=== PATIENT | male | born 1965 | race Caucasian/White ===

== ENCOUNTER 2019-06-10 12:41 | Emergency (ER) | payer MEDICAID ==
[~2019-06-10] VITALS: Ht 180.3 cm; Wt 97.5 kg
[2019-06-10 14:26] VITALS: BP 178/112
== END 2019-06-10 14:28 | disposition home or self-care (01) ==
LOC: ED 13:32
DX: I10 Essential (primary) hypertension (principal); Z86.73 Personal history of transient ischemic attack (TIA), and cerebral infarction without residual deficits
CPT/HCPCS: 99283

== ENCOUNTER 2021-04-09 12:00 | Observation (INO) | payer MEDICAID, OTHER ==
[~2021-04-09] VITALS: Ht 180.3 cm; Wt 99.9 kg
[~2021-04-09 12:00] MED LIST: CALC200T24 PO; CHOL400T2 PO; LISI-167 PO; MELO7.5T31 PO; OXYC10TA47 PO; OXYC1TAB18 PO; POLY17PO5 PO; RIVA20TA PO; SIMV20TA19 PO
[2021-04-09] MEDS: SODIUM CHLORIDE 0.9% 1,000 ML IV ONE ×2 (12:30→13:58)
[2021-04-09 13:01] LABS: BASOPHILS % (AUTO) 1 % (0-1); EOSINOPHILS % (AUTO) 0 % (1-7); LYMPHOCYTES % (AUTO) 12 % (22-44); MEAN CORPUSCULAR HEMOGLOBIN 32.6 pg (27.5-34.5); MEAN PLATELET VOLUME 7.6 fL (7.4-10.4); MONOCYTES % (AUTO) 5 % (2-9); NEUTROPHILS % (AUTO) 83 % (42-75); PLATELET COUNT 298 x10^3/uL (130-400); RED BLOOD COUNT 4.99 x10^6/uL (4.38-5.82); RED CELL DISTRIBUTION WIDTH 12.7 % (9.4-14.8)
[2021-04-09 13:13] LABS: ALANINE AMINOTRANSFERASE 23 U/L (12-78); ALBUMIN 4.2 g/dL (3.4-5.0); ANION GAP 4 mmol/L (5-15); CHLORIDE 107 mmol/L (98-107)
[2021-04-09 13:15] LABS: ALKALINE PHOSPHATASE 118 U/L (45-117); BILIRUBIN,TOTAL 0.6 mg/dL (0.2-1.0); TOTAL PROTEIN 7.9 g/dL (6.4-8.2)
[2021-04-09 13:16] LABS: MD NO
--- NOTE | 2021-04-09 14:01 | NUR ---
PT CAME IN [place] AND ABD PAIN THAT STARTED AROUND 0900 THIS MORNING. PT DENIES BLOODY STOOL BUT SAID HIS VOMIT HAD BLOOD IN IT. PT RESTING IN [facility]. UNABLE TO PROVIDE UA AT THIS TIME. IV FLUIDS INFUSING.
[2021-04-09] MEDS ORDERED: ONDANSETRON 2MG/ML, 2ML IVPush ONE (14:30)
[2021-04-09] MEDS ORDERED: HYDROmorphone 1 MG/ML, 1ML INJ ONE (14:37)
[2021-04-09] MEDS ORDERED: ONDANSETRON 2MG/ML, 2ML ONE (14:37)
--- NOTE | 2021-04-09 14:45 | NUR ---
PT MEDICATED PER MAR
--- NOTE | 2021-04-09 15:03 | NUR ---
PT TO CT AT THIS TIME
[2021-04-09] MEDS ORDERED: OMNIPAQUE 350 MG/ML, 100ML BOTTLE ONE (15:18)
[2021-04-09] MEDS ORDERED: SODIUM CHLORIDE FLUSH 10ML SYR IVF ONE ×2 (15:30)
[2021-04-09] MEDS ORDERED: HYDROmorphone 1 MG/ML, 1ML INJ IV ONE (15:30)
[2021-04-09] MEDS ORDERED: SODIUM CHLORIDE 0.9% 1,000ML IVBOLUS ONE (15:30)
[2021-04-09 16:00] LABS: MICROSCOPIC INDICATED
[2021-04-09] MEDS ORDERED: KETAMINE 10 MG/ML, 20ML IV ONE (16:07)
[2021-04-09] MEDS ORDERED: KETAMINE 10 MG/ML, 20ML ONE (16:08)
--- NOTE | 2021-04-09 16:45 | NUR ---
PT RESTING IN [facility]. UP FOR RECHECK
[2021-04-09] MEDS ORDERED: PANTOPRAZOLE 40 MG IV IVPush SCH (19:30)
[2021-04-09] MEDS ORDERED: BISACODYL 10 MG SUPP PR PRN (19:30)
[2021-04-09] MEDS ORDERED: ONDANSETRON ODT 4 MG PO PRN (19:30)
[2021-04-09] MEDS ORDERED: ACETAMINOPHEN 325 MG TABLET PO PRN (19:30)
[2021-04-09] MEDS ORDERED: DOCUSATE 100 MG CAPSULE PO PRN (19:30)
[2021-04-09] MEDS ORDERED: hydrALAzine 20 MG/ML, 1ML IVPush PRN (19:30)
[2021-04-09] MEDS ORDERED: PROMETHAZINE 25 MG/ML, 1ML IM PRN (19:30)
[2021-04-09] MEDS ORDERED: POLYETHYLENE GLYCOL 17 GM PACKET PO PRN (19:30)
[2021-04-09] MEDS ORDERED: ONDANSETRON 2MG/ML, 2ML IVPush PRN (19:30)
[2021-04-09] MEDS ORDERED: CLOP75TA52 PO (19:51)
[2021-04-09] MEDS ORDERED: ATOR-2 PO (19:51)
[2021-04-09] MEDS ORDERED: LISI-167 PO (19:51)
[2021-04-09] MEDS ORDERED: METO25TA35 PO (19:51)
[2021-04-09] MEDS ORDERED: ASPI-963 PO (19:51)
[2021-04-09] MEDS: SODIUM CHLORIDE 0.9% 1,000 ML IV SCH (20:34)
[2021-04-09 20:45] VITALS: BP 159/95
[2021-04-09] MEDS ORDERED: ATORVASTATIN 20 MG TABLET PO SCH (21:00)
[2021-04-09] MEDS: OXYcodone IR 5MG TABLET PO PRN (21:23)
[2021-04-09] MEDS ORDERED: MORPHINE SULFATE 4 MG/ML, 1ML IVPush PRN (23:30)
[2021-04-10 00:55] VITALS: BP 151/86
[2021-04-10] MEDS: OXYcodone IR 5MG TABLET PO PRN (02:11)
[2021-04-10] MEDS: SODIUM CHLORIDE 0.9% 1,000 ML IV SCH (05:05)
[2021-04-10 05:29] LABS: BASOPHILS % (AUTO) 1 % (0-1); EOSINOPHILS % (AUTO) 0 % (1-7); LYMPHOCYTES % (AUTO) 14 % (22-44); MEAN CORPUSCULAR HEMOGLOBIN 32.8 pg (27.5-34.5); MEAN CORPUSCULAR HGB CONC 34.1 g/dL (33.2-36.2); MEAN PLATELET VOLUME 7.8 fL (7.4-10.4); MONOCYTES % (AUTO) 6 % (2-9); NEUTROPHILS % (AUTO) 80 % (42-75); PLATELET COUNT 260 x10^3/uL (130-400); RED BLOOD COUNT 4.66 x10^6/uL (4.38-5.82); RED CELL DISTRIBUTION WIDTH 12.8 % (9.4-14.8)
[2021-04-10 05:31] LABS: MD NO
[2021-04-10 05:41] LABS: ALANINE AMINOTRANSFERASE 19 U/L (12-78); ALBUMIN 3.4 g/dL (3.4-5.0); CALCIUM 8.4 mg/dL (8.5-10.1)
[2021-04-10 05:49] LABS: ALKALINE PHOSPHATASE 98 U/L (45-117); BILIRUBIN,TOTAL 0.7 mg/dL (0.2-1.0); CHOL/HDL RATIO 2.1; CHOLESTEROL, TOTAL 146 mg/dL (140-239); HDL CHOL % 49 % (26-37); HDL CHOLESTEROL (DIRECT) 71 mg/dL (40-60); LDL CHOLESTEROL,CALCULATED 59 mg/dL (54-169); LDL/HDL RATIO 0.8 (0.5-3.0); TOTAL PROTEIN 6.9 g/dL (6.4-8.2); TRIGLYCERIDES 81 mg/dL (50-200); VLDL CHOLESTEROL 16 mg/dL (0-25)
[2021-04-10 06:10] LABS: ANION GAP 4 mmol/L (5-15); CHLORIDE 110 mmol/L (98-107)
[2021-04-10 07:57] VITALS: BP 128/78
[2021-04-10] MEDS ORDERED: ASPIRIN 81 MG TABLET EC PO SCH (09:00)
[2021-04-10] MEDS ORDERED: METOPROLOL TARTRATE 25 MG TAB PO SCH (09:00)
[2021-04-10] MEDS ORDERED: CLOPIDOGREL 75 MG TABLET PO SCH (09:00)
[2021-04-10] MEDS ORDERED: LISINOPRIL 20 MG TABLET PO SCH (09:00)
== END 2021-04-10 12:50 | disposition home or self-care (01) ==
LOC: ED 14:29 → UNDOADMIN 20:21 → EDIP 20:21 → 3N 20:30 → DCLOUNGE 04-10 12:45
PROVIDERS: ADMIT Internal Medicine; ATTEND Family Medicine
DX: R10.33 Periumbilical pain (principal); R11.2 Nausea with vomiting, unspecified; I10 Essential (primary) hypertension; E78.5 Hyperlipidemia, unspecified; E11.9 Type 2 diabetes mellitus without complications; I25.2 Old myocardial infarction; D68.59 Other primary thrombophilia; Q21.1 Atrial septal defect; Z86.73 Personal history of transient ischemic attack (TIA), and cerebral infarction without residual deficits; Z79.899 Other long term (current) drug therapy; Z79.82 Long term (current) use of aspirin; Z79.01 Long term (current) use of anticoagulants; Z87.442 Personal history of urinary calculi
CPT/HCPCS: 36415; 74177; 80053; 80061; 81001; 83036; 83690; 83735; 84100; 84443; 85025; 96361; 96372; 96374; 96375; 96376; 99285; C9113; G0378; J1170; J2270; J2405; J2550; J7030; Q9967